=== PATIENT | male | born 1975 | race Two or more races ===

== ENCOUNTER → 2016-08-05 | Outpatient (CLI) | payer OTHER | LOC: CIMAGING 08:50 | PROVIDERS: ATTEND Nurse Practitioner | DX: S30.1XXA Contusion of abdominal wall, initial encounter (principal); Y93.B9 Activity, other involving muscle strengthening exercises | CPT/HCPCS: 76882-PO ==

== ENCOUNTER → 2016-12-03 | Outpatient (CLI) | payer OTHER | LOC: FIMAGING 06:35 | PROVIDERS: ATTEND Family Medicine | DX: M51.37 Other intervertebral disc degeneration, lumbosacral region (principal); R10.31 Right lower quadrant pain; R10.2 Pelvic and perineal pain; R93.8 Abnormal findings on diagnostic imaging of other specified body structures ==

== ENCOUNTER 2017-01-17 12:11 | Day surgery (SDC) | payer OTHER ==
[2017-01-17] MEDS ORDERED: BUPIVACAINE 0.5% 30 ML SDV ONE (12:35)
[2017-01-17] MEDS ORDERED: ceFAZolin 2 GM/DEXTROSE 100 ML IV ONE (12:59)
[2017-01-17] MEDS ORDERED: LIDOCAINE 1% 2 ML INJ ID PRN (13:02)
[2017-01-17] MEDS ORDERED: LR 1,000 ML IV ONE (13:02)
[2017-01-17 13:20] VITALS: PULSE 75
[2017-01-17] MEDS ORDERED: MIDAZOLAM 2 MG/2 ML VIAL IVP ONE (13:27)
[2017-01-17] MEDS ORDERED: MIDAZOLAM 2 MG/2 ML VIAL ONE (13:28)
--- NOTE | 2017-01-17 13:28 | PDANEPAE ---
ANE History of Present Illness r inguinal hernia ANE Past Medical History - Cardiovascular History Hx Hypertension: No Hx Arrhythmias: No Hx Chest Pain: No Hx Coronary Artery / Peripheral Vascular Disease: No Hx CHF / Valvular Disease: No Hx Palpitations: No - Pulmonary History Hx COPD: No Hx Asthma/Reactive Airway Disease: No Hx Recent Upper Respiratory Infection: No Hx Oxygen in Use at Home: No Hx Sleep Apnea: No Sleep Apnea Screening Result - Last Documented: Negative - Neurologic History Hx Cerebrovascular Accident: No Hx Seizures: No Hx Dementia: No - Endocrine History Hx Diabetes: No - Renal History Hx Renal Disorders: No - Liver History Hx Hepatic Disorders: No - Neurological & Psychiatric Hx Hx Neurological and Psychiatric Disorders: Yes Neurological / Psychiatric History Comment: L2/L3 herniated disc causes pain down R leg - Cancer History Hx Cancer: No - Congenital Disorder History Hx Congenital Disorders: No - GI History Hx Gastrointestinal Disorders: No - Other Health History Other Health History: R inguinal hernia-causes acid reflux and nausea - Chronic Pain History Chronic Pain: No - Surgical History Prior Surgeries: R ankle reconstruction (ligaments/tendons) '94 ANE Review of Systems Review of Systems: - Exercise capacity METS (RN): 5 METS ANE Patient History - Allergies Allergies/Adverse Reactions: No Known Allergies Allergy (Unverified 01/14/17 12:13) - Home Medications Home Medications: Aleve 01/14/17 [Last Taken 01/14/17] - NPO status NPO Since - Liquids (Date): 01/17/17 NPO Since - Liquids (Time): 09:00 NPO Since - Solids (Date): 01/16/17 NPO Since - Solids (Time): 18:00 - Smoking Hx Smoking Status: Never smoked ANE Labs/Vital Signs - Vital Signs Blood Pressure: 147/88 Heart Rate: 75 Respiratory Rate: 16 O2 Sat (%): 96 Height: 177.8 cm Weight: 83.915 kg ANE Physical Exam - Airway Neck exam: FROM Mallampati Score: Class 1 Mouth exam: normal dental/mouth exam - Pulmonary Pulmonary: no respiratory distress - Cardiovascular Cardiovascular: regular rate and rhythym - ASA Status ASA Status: I ANE Anesthesia Plan Anesthesia Plan: general endotracheal anesthesia
[2017-01-17] MEDS ORDERED: ROCURONIUM 50 MG/5 ML VIAL ONE (13:29)
[2017-01-17] MEDS ORDERED: PROPOFOL 200 MG/20 ML VIAL ONE (13:30)
[2017-01-17] MEDS ORDERED: HYDROmorphONE/DILAUDID 2 MG/ML INJ ONE (13:30)
[2017-01-17] MEDS ORDERED: fentaNYL 100 MCG/2 ML INJ ONE ×4 (13:30→15:51)
[2017-01-17] MEDS ORDERED: PROMETHAZINE HCL 25 MG/ML INJ IVP PRN (14:03)
[2017-01-17] MEDS ORDERED: MEPERIDINE 25 MG/ML SYR IVP PRN (14:03)
[2017-01-17] MEDS ORDERED: NALOXONE HCL 0.4 MG/ML INJ IVP PRN (14:03)
[2017-01-17] MEDS ORDERED: ONDANSETRON 4 MG/2 ML VIAL IVP PRN (14:03)
[2017-01-17] MEDS ORDERED: HYDROCODONE/APAP 5/325 TAB PO PRN (14:03)
--- NOTE | 2017-01-17 15:27 | POSTANESTH ---
Post Anesthetic Evaluation Cardiovascular Status: Normal, Stable Respiratory Status: Normal, Stable Level of Consciousness/Mental Status: Can Participate in Eval Pain Control: Adequate, Prn Tx Ordered Nausea/Vomiting Control: Adequate, Prn Tx Ordered Complications Possibly Related to Anesthesia: None Noted
[2017-01-17] MEDS ORDERED: HYDROmorphONE/DILAUDID 1 MG/ML INJ ONE (15:28)
[2017-01-17] MEDS: fentaNYL 100 MCG/2 ML INJ IVP PRN ×3 (15:30→15:53)
[2017-01-17] MEDS: HYDROmorphONE/DILAUDID 1 MG/ML INJ IVP PRN ×3 (15:31→15:54)
[2017-01-17] MEDS ORDERED: ONDANSETRON 4 MG/2 ML VIAL ONE (15:35)
--- NOTE | 2017-01-17 15:42 | POSTOPPROG ---
Post Op Note Date of Operation: 01/17/17 Surgeon: Cooper Dillon Neighborhood Aide: MATHEW Medina Anesthesiologist: Angelita Anesthesia: GET(General Endotracheal) Pre-op Diagnosis: Right sports hernia Post-op Diagnosis: same Procedure: robotic RIH c mesh Findings: inflammation, weak inguinal floor Inf/Abcess present in the surg proc area at time of surgery?: No EBL: Minimal
[2017-01-17] MEDS ORDERED: MEPERIDINE 25 MG/ML SYR ONE (15:46)
[2017-01-17 16:34] VITALS: RESP 15
[2017-01-17] MEDS ORDERED: OXYCODONE/APAP 5/325 TAB PO PRN (17:46)
[2017-01-17 17:47] VITALS: BP 133/82
[2017-01-17 17:48] VITALS: TEMP 97.9
[2017-01-17 18:14] VITALS: O2SAT 100
--- NOTE | 2017-01-18 09:41 | GOP ---
[f rep st] OPERATIVE REPORT DATE OF OPERATION: 01/17/2017 SURGEON: Cooper Dillon MD PRODUCTION TESTER: Tati Medina ANESTHESIA: General endotracheal. ANESTHESIOLOGIST: Provided by Dr. Goldstein. PREOPERATIVE DIAGNOSIS: Right sports hernia. POSTOPERATIVE DIAGNOSIS: Right sports hernia. PROCEDURE PERFORMED: Robotic-assisted laparoscopic transabdominal preperitoneal right inguinal hernia repair with mesh. FINDINGS: Inflammation near Corby ligament, weakening of the inguinal floor apparent. Repair performed with Large Bard 3D light mesh. SPECIMENS: None. ESTIMATED BLOOD LOSS: 5 cc. DESCRIPTION OF PROCEDURE: The patient was greeted in the preoperative suite. Once again, risks, benefits, and alternatives were discussed. Consent was signed. He was then brought back to the operative suite, placed on the OR table in the supine position. After all anesthesia machines including SCDs were on and functioning, [employer] time-out was performed. After successful induction of general anesthesia, the patient's abdomen was prepped and draped in typical sterile fashion. I entered the patient's abdomen using the Veress needle just superior to the umbilicus and achieved pneumoperitoneum to 15 mmHg. Through this site I inserted a 5 mm port using the Visiport technique. Once inside the abdomen, I inserted 2 other 8 mm trocars, 1 in the right upper, 1 in the left upper quadrant, both under direct visualization and then upsized my midline port to an 8 as well. I then successfully docked the robot. I entered the preperitoneal area in the right inguinal space, dissected it out down to Corby ligament medially all the way over laterally to the anterior superior iliac spine. I encountered no indirect defect. The inguinal floor did appear to be weak and there was some significant amount of inflammation near Corby ligament. After identifying no additional hernias in the femoral or indirect space, I then brought in a piece of large Bard 3D light mesh and attached successfully to Corby ligament using an interrupted 3-0 Vicryl suture. I then placed 2 additional stay sutures just on either side of the inferior epigastric vessels. Once I felt that the mesh was lying appropriately, I then closed the peritoneum using a running 3-0 V-Loc suture. I then desufflated my pneumoperitoneum, removed my port sites. I closed the skin with running 4-0 Monocryl and covered these with Dermabond. The patient was then extubated in the operative suite and taken to the PACU in satisfactory condition. DRAINS: None. COUNTS: All counts were reported as correct x2. /[id number]/MODL MTDD
== END 2017-01-17 18:14 | disposition home or self-care (01) ==
LOC: FSGY 12:11
PROVIDERS: ATTEND Surgery
PROC: 0YU54JZ Supplement Right Inguinal Region with Synthetic Substitute, Percutaneous Endoscopic Approach (ICD-10-PCS; principal; 2017-01-17 14:15)
DX: K40.90 Unilateral inguinal hernia, without obstruction or gangrene, not specified as recurrent (principal)
CPT/HCPCS: C1781; J0690; J1170; J2250; J2405; J2704; J3010